=== PATIENT | male | born 1980 | race Caucasian/White ===

== ENCOUNTER 2022-06-06 06:47 | Outpatient (CLI) | payer OTHER, SELFPAY ==
--- NOTE | 2022-06-06 07:17 | MR_ITS ---
WS: [id number] MRI LEFT SHOULDER HISTORY: L SHOULDER PAIN COMPARISON: Shoulder radiograph 12/09/2021 TECHNIQUE: Multiplanar sequences of the shoulder joint are submitted. Mild AC joint hypertrophy. Joint space narrowing with osteophytes at the acromion and distal clavicle with mild encroachment upon the supraspinatus myotendinous insertion. No subacromial or subdeltoid f luid. No os acromion. Biceps tendon normal position in the bicipital groove. Mildly high riding humeral head. Mild narrowing of the glenohumeral joint space. No marrow edema. No muscle atrophy or edema. Small insertion site tear measuring 6 mm involving the infraspinatus tendon. Very minimal subacromial impingement. Short segment tear involving the anterior labrum. MR/MR shoulder LT wo con* [id number] IMPRESSION: 1. Small insertion site tear infraspinatus tendon. 2. Anterior labral tear. 3. Mild AC joint arthritis with minimal encroachment upon the myotendinous ins ertion of the supraspinatus.
== END 2022-06-06 06:48 | disposition home or self-care (01) ==
PROVIDERS: PCP Family Medicine; Visit Provider Physician Assistant
DX: S43.492A Other sprain of left shoulder joint, initial encounter (principal); X58.XXXA Exposure to other specified factors, initial encounter
CPT/HCPCS: 73221

== ENCOUNTER → 2022-07-09 13:43 | Outpatient (BNVA) | payer OTHER, SELFPAY | PROVIDERS: PCP Family Medicine; Referring Provider Internal Medicine Medical Oncology; Visit Provider Nurse Practitioner Family | DX: M25.512 Pain in left shoulder (principal); S43.432A Superior glenoid labrum lesion of left shoulder, initial encounter; M75.102 Unspecified rotator cuff tear or rupture of left shoulder, not specified as traumatic; M12.812 Other specific arthropathies, not elsewhere classified, left shoulder; W18.39XA Other fall on same level, initial encounter; Y99.0 Civilian activity done for income or pay | CPT/HCPCS: 73030 ==

== ENCOUNTER 2024-08-19 11:01 | Emergency (ER) | payer SELFPAY ==
[2024-08-19 11:03] VITALS: BP 170/96; PULSE 108; RESP 22; TEMP 36.6; O2SAT 99; BMI 30.3
[2024-08-19 11:16] LABS: Glucose Point of Care 105 mg/dL (70-110)
--- NOTE | 2024-08-19 11:34 | W.ED.NEUROSD ---
HPI - Neuro Symptoms/Deficit General: Chief Complaint: Neuro Symptoms/Deficit Stated Complaint: Stroke like symptoms Time Seen by Provider: 08/19/24 11:16 History of Present Illness: 43-year-old physically active healthy male with no reported medical history presents to the emergency department noticing that the right side of his mouth is drooping down and the right side of his tongue feels numb. The right lower lip also feels funny. Patient reports he noticed this around 6 AM this morning. It has gotten progressively worse as the day has gone on. On arrival you can see that he is having difficulty closing the right eye as well. He has no troubles with his vision, extremities, ambulating, speech, cognition, and no dizziness or lightheadedness. He does not smoke. He reports he got anxious because he called a friend and they told him he could be having a stroke. His blood pressure is noted to be elevated and his heart rate up a little bit on arrival. Patient says he thinks he got himself worked up. Normally he has okay blood pressure and pulse. He is very physically active doing concrete work. He denies smoking. He denies significant medical history in first-degree relatives at a young age. Associated symptoms: Deny chest pain, headache(s), nausea, syncope or vomiting Related Data Previous Rx's Medication Instructions Recorded prednisone 10 mg tablet 10 mg PO DIRECTED #45 tabs 08/19/24 valacyclovir 1 gram tablet 500 mg (1/2 x 1 gram) PO BID 5 08/19/24 days #5 tabs Allergies Allergy/AdvReac Type Severity Reaction Status Date / Time No Known Allergies Allergy Verified 11/18/22 15:29 Review of Systems General: Reports: 10 or more systems reviewed and unremarkable except in HPI and below Const: Denies: fever(s), chills or body aches Eyes: Denies: change in vision ENMT: Denies: throat pain Card: Denies: chest pain, edema or syncope Resp: Denies: dyspnea or productive cough GI: Denies: abdominal pain, nausea or vomiting Musc: Denies: neck pain, back pain, extremity pain or extremity swelling Skin/Breast: Denies: rash or erythema Neuro: Denies: headache(s), numbness in extremities, weakness in extremities, lack of coordination or difficulty walking [facility] PFSH: Family History Other No pertinent family history Social History Smoking and tobacco/nicotine status: never used tobacco/nicotine Alcohol intake: current NIH stroke score NIHSS: Level Of Consciousness - 1a: 0 Level Of Consciousness Questions - 1b: Both Correct Level Of Consciousness Commands - 1c: Both Correct Best Gaze - 2: Normal Visual Toro - 3: No Visual Loss Facial Palsy - 4: Minor Paralysis Motor Arm Right - 5: No Drift Motor Arm Left - 5: No Drift Motor Leg Right - 6: No Drift Motor Leg Left - 6: No Drift Limb Ataxia - 7: Absent Sensory - 8: Normal Best Language - 9: No Aphasia Dysarthia - 10: Normal Extinction And Inattention - 11: 0 Score: Total Score: 1 Physical Exam Const: COMMON NORMALS: no limitations, alert and well nourished EXAM LIMITATIONS: no altered mental status HENMT: COMMON NORMALS: normocephalic, atraumatic and external ears normal HEAD & SCALP: normocephalic and atraumatic EXTERNAL EAR: Yes external ears normal MOUTH: no muffled voice Eye: COMMON NORMALS: EOMs intact bilaterally, conjunctivae normal and no scleral icterus CONJUNCTIVA: Yes conjunctivae normal Neck/C-Spine: COMMON NORMALS: no JVD GENERAL: Yes normal visual inspection and Yes trachea midline Resp: COMMON NORMALS: normal respiratory effort, No use of accessory muscles and clear to auscultation bilaterally AUSCULTATION: clear to auscultation bilaterally Cardio: COMMON NORMALS: no JVD, regular rate and regular rhythm RATE: regular rate RHYTHM: regular rhythm GI: COMMON NORMALS: Soft to palpation and non-tender PALPATION: Yes Soft to palpation and No Guarding due to palpation present (GI) Extremity: COMMON NORMALS: normal to inspection Neuro: COMMON NORMALS: moves all extremities SENSORIUM/ORIENTATION: Yes alert SPEECH: speech normal OTHER: Patient has difficulty closing his right eye. Left eye motor exam normal. Extraocular movements intact. Pupils equal round reactive. Patient has difficulty opening the right eye or closing the right eye against resistance. There is a asymmetry in his smile with some paralysis on the right. When using salt isolated on the right anterior two thirds of the tongue he cannot taste much of anything. When placing salt on the left anterior two thirds of the tongue he has a very strong taste of salt. When he touches his face on the right and left side simultaneously in the V1 V2 and V3 distribution they feel the same to him. Examination of his upper extremities and lower extremities concerning strength, sensation, coordination, fine motor movements--they are all normal. Speech is normal. Psych: COMMON NORMALS: mental status grossly normal, Normal thought process present, cooperative, normal affect and speech normal SPEECH: Yes normal speech THOUGHT PROCESS: Normal thought process present Skin: COMMON NORMALS: no rashes or lesions noted, turgor normal and no jaundice GENERAL SKIN EXAM: no rashes or lesions noted and turgor normal Course Vital Signs: Vital signs: Vital Signs Temperature 97.8 F 08/19/24 11:03 Pulse Rate 108 H 08/19/24 11:03 Respiratory Rate 22 H 08/19/24 11:03 Blood Pressure 170/96 08/19/24 11:03 Pulse Oximetry 99 08/19/24 11:03 Oxygen Delivery Me thod Room Air 08/19/24 11:03 MDM - Neuro Symptoms/Deficit Medical Decision Making Patient presents with syndrome consistent with Lazcano's palsy. It is acute. It is right-sided. There are no other concerning neurologic features to suggest stroke. Saline test performed on the anterior two thirds of the tongue also help secure the diagnosis in addition to the fact that he has weakness in his right forehead and eyelid. This is a lower motor neuron lesion . Patient's blood pressure and heart rate were initially somewhat elevated. His heart rate came back down after he realized he was having Lazcano's palsy. His sister has had this so he is familiar with it. We will have him trend his blood pressure as an outpatient. Patient can be started on prednisone bolus then taper as well as a trial of valacyclovir. He has never had shingles in the past that he is aware of. Patient reports he has been working hard, rundown, not sleeping well, and his diet is not as good as usual. We will have him follow-up with his PCP. Patient advised to use artificial tears and an eye patch. Lab Data Laboratory Results POC Glucose 105 mg/dL (70-110) 08/19/24 11:12 No radiology studies performed this visit Discharge Plan Discharge Patient Disposition: Home Clinical Impression: Lazcano's palsy Condition: Stable Prescriptions: New valacyclovir 1 gram tablet 500 mg PO BID 5 Days Qty: 5 0RF prednisone 10 mg tablet 10 mg PO DIRECTED Qty: 45 0RF Rx Instructions: see taper instructions: 60mg x5 days then 50mg x1d, 40mg x1d, 30mg x1d, 20mg x1d, 10mg x1d Discontinued clindamycin phosphate 1 % lotion 1 applic TOPICAL DAILY Qty: 60 3RF Rx Instructions: Apply 1-2 times daily to affected areas on back Discharge Orders: Discharge ED (Routine); Ordered 08/19/24 Ordered By: Richard Martin Referrals: Devon Johnson MD [Primary Care Provider] - 4-7 days (Recheck BP and Lazcano's Palsy) Patient Instructions: Lazcano Palsy (ED) Activity Restrictions/Additional Instructions: 1. Wear an eye patch to bed. Use [id number] lubricating eyedrops as much as needed to keep your eye moist 2. Take prednisone 60 mg for 5 days then go down by 10 mg a day for 5 days. You should also take the antiviral provided to you in the prescription. 3. Read handout and abide by return precautions. If you develop new symptoms such as visual changes, sensory changes, coordination issues, decreased strength, dizziness, or other worrisome symptoms return to ER. 4. Your blood pressure was high. This is probably because you were nervous about her diagnosis and problems. However, you should have your blood pressure rechecked within the next week to make sure it is back down to normal. If it is not, please address with your primary care physician. 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
[2024-08-19 12:34] VITALS: BP 148/86; PULSE 62; O2SAT 98
== END 2024-08-19 11:45 | disposition home or self-care (01) ==
PROVIDERS: Emergency Provider Emergency Medicine; PCP Family Medicine
DX: G51.0 Bell's palsy (principal)
CPT/HCPCS: 36416; 82962; 99283